=== PATIENT | female | born 2000 | race Caucasian/White ===

== ENCOUNTER 2024-09-09 17:23 | Inpatient (IN) | payer OTHER ==
[2024-09-09 18:30] LABS: BASOPHILS ABSOLUTE AUTO 0.04 K/uL (0.00-0.10); BASOPHILS PERCENT AUTO 0.2 % (0.1-1.3); EOSINOPHILS PERCENT AUTO 0.1 % (0.0-5.4); HEMATOCRIT 37.1 % (34.3-46.0); HEMOGLOBIN 12.5 g/dL (11.2-15.5); IMMATURE GRAN ABSOLUTE AUTO 0.06 K/uL (0.00-0.23); IMMATURE GRAN PERCENT AUTO 0.4 % (0.0-0.7); LYMPHOCYTES ABSOLUTE AUTO 1.31 K/uL (0.8-3.3); LYMPHOCYTES PERCENT AUTO 8.1 % (11.4-47.7); MEAN CORPUSCULAR HEMOGLOBIN 29.1 pg (31.6-35.5); MEAN CORPUSCULAR HGB CONC 33.7 g/dL (31.6-35.5); MEAN CORPUSCULAR VOLUME 86.5 fL (81.4-99.0); NEUTROPHILS ABSOLUTE AUTO 13.89 K/uL (1.0-7.6); NEUTROPHILS PERCENT AUTO 86.2 % (40.0-78.1); PLATELET COUNT,PLT 221 K/uL (130-375); RED BLOOD CELL COUNT 4.29 M/uL (3.77-5.24); WHITE BLOOD CELL COUNT,WBC 16.1 K/uL (3.2-11.0)
[2024-09-09 18:33] LABS: EOSINOPHILS ABSOLUTE AUTO 0.02 K/uL (0.00-0.40)
[2024-09-09 18:51] LABS: A/G RATIO 1.7 (1.2-2.2); ALANINE AMINOTRANSFERASE,ALT 21 U/L (12-78); ALBUMIN 4.3 g/dL (3.4-5.0); ALKALINE PHOSPHATASE 61 U/L (46-116); ANION GAP 11.7 mmol/L (5.0-14.0); ASPARTATE AMNIOTRANSFERASE,AST 16 U/L (15-37); BILIRUBIN TOTAL 0.3 mg/dL (0.2-1.0); BLOOD UREA NITROGEN,BUN 13 mg/dL (7-18); CALCIUM 9.2 mg/dL (8.5-10.1); CARBON DIOXIDE,CO2 26 mmol/L (21-32); CHLORIDE,CL 102 mmol/L (100-108); CREATININE 0.7 mg/dL (0.6-1.0); EST CRCL DRUG DOSING (CG) 119.01 mL/min; ESTIMATED GFR 126 mL/min (>60); GLUCOSE RANDOM 110 mg/dL (74-106); POTASSIUM,K 3.6 mmol/L (3.6-5.2); PROTEIN TOTAL,TP 6.9 g/dL (6.4-8.2); SODIUM,NA 140 mmol/L (140-148)
[2024-09-09] MEDS: Ketorolac 30 MG/ML SDV IVPUSH ONE (19:00)
[2024-09-09] MEDS: Ondansetron 4 MG/2 ML SDV IVPUSH ONE (19:00)
[2024-09-09] MEDS: Sodium Chloride 0.9% 1,000 ML IV SCH (19:01)
[2024-09-09] MEDS: Sodium Chloride 0.9% 10 ML Syringe FLUSH PRN (19:01)
[2024-09-09 19:44] LABS: APPEARANCE,URINE SLIGHTLY CLOUDY (CLEAR); BILIRUBIN,URINE NEGATIVE (NEGATIVE); COLOR,URINE YELLOW (YELLOW); GLUCOSE,URINE NEGATIVE (NEGATIVE); KETONES,URINE 15 mg/dL (NEGATIVE); LEUKOCYTE ESTERASE,URINE NEGATIVE (NEGATIVE); NITRITE,URINE NEGATIVE (NEGATIVE); OCCULT BLOOD,URINE NEGATIVE (NEGATIVE); PH,URINE 6.5 (5.0-8.0); PROTEIN,URINE NEGATIVE (NEGATIVE); UROBILINOGEN,URINE 0.2 EU/dL (0.2-1.0)
[2024-09-09 19:55] LABS: AMORPHOUS SEDIMENT,URINE NOT SEEN; BACTERIA,URINE MANY; EPITHELIAL CELLS,URINE MANY; MUCUS,URINE MODERATE; RBC,URINE 0-5 (0-5); WBC,URINE 0-5 (0-5)
[2024-09-09] MEDS: Iopamidol 612 MG/ML 100 ML Bottle IV SCH (20:32)
[2024-09-09] MEDS: Sodium Chloride 0.9% 80 ML IV SCH (20:32)
[2024-09-09] MEDS: Piperacillin/Tazobactam 4.5 GM in Sodium Chloride 0.9% 100 ML IV ONE (21:50)
[2024-09-10] MEDS ORDERED: Acetaminophen 325 MG Tab PO PRN (00:57)
[2024-09-10] MEDS ORDERED: Naloxone 0.4 MG/ML SDV IVPUSH PRN (00:57)
[2024-09-10] MEDS ORDERED: Acetaminophen 650 MG Supp RECTAL PRN (00:57)
[2024-09-10] MEDS ORDERED: Ondansetron 4 MG/2 ML SDV IV PRN (00:57)
[2024-09-10] MEDS ORDERED: Albuterol 0.083% 2.5 MG/3 ML Neb Soln NEB PRN (00:57)
[2024-09-10] MEDS ORDERED: HYDROmorphone 0.5 MG/0.5 ML Syringe IVPUSH PRN (00:57)
[2024-09-10] MEDS: Sodium Chloride 0.9% 1,000 ML IV SCH (01:42)
[2024-09-10] MEDS: cefTRIAXone 1 GM in Sodium Chloride 0.9% 50 ML IV SCH (01:44)
[2024-09-10] MEDS: metroNIDAZOLE/Normal Saline 500 MG in Premix Bag 1 BAG IV SCH (02:28)
[2024-09-10 06:01] LABS: HEMATOCRIT 32.5 % (34.3-46.0); HEMOGLOBIN 10.9 g/dL (11.2-15.5); MEAN CORPUSCULAR HEMOGLOBIN 29.2 pg (31.6-35.5); MEAN CORPUSCULAR HGB CONC 33.5 g/dL (31.6-35.5); MEAN CORPUSCULAR VOLUME 87.1 fL (81.4-99.0); RED BLOOD CELL COUNT 3.73 M/uL (3.77-5.24); WHITE BLOOD CELL COUNT,WBC 10.2 K/uL (3.2-11.0)
[2024-09-10 06:17] LABS: ANION GAP 8.5 mmol/L (5.0-14.0); CALCIUM 8.6 mg/dL (8.5-10.1); CREATININE 0.6 mg/dL (0.6-1.0); EST CRCL DRUG DOSING (CG) 138.85 mL/min; POTASSIUM,K 3.6 mmol/L (3.6-5.2)
[2024-09-10] MEDS ORDERED: fentaNYL 250 MCG/5 ML SDV ONE (10:24)
[2024-09-10] MEDS ORDERED: Glycopyrrolate 0.2 MG/ML 5 ML MDV ONE (10:24)
[2024-09-10] MEDS ORDERED: Rocuronium 50 MG/5 ML Vial ONE (10:24)
[2024-09-10] MEDS ORDERED: Neostigmine Methylsulfate 10 MG/10 ML MDV ONE (10:24)
[2024-09-10] MEDS ORDERED: Propofol 200 MG/20 ML SDV ONE (10:24)
[2024-09-10] MEDS ORDERED: Ondansetron 4 MG/2 ML SDV ONE (10:24)
[2024-09-10] MEDS ORDERED: Succinylcholine 200 MG/10 ML MDV ONE (10:24)
[2024-09-10] MEDS ORDERED: Dexamethasone 4 MG/ML SDV ONE (10:24)
[2024-09-10] MEDS ORDERED: Bupivacaine 0.25%/EPINEPHrine 1:200,000 30 ML SDV ONE (11:17)
[2024-09-10] MEDS: Bupivacaine 0.25%/EPINEPHrine 1:200,000 30 ML SDV ONE (12:45)
[2024-09-10] MEDS ORDERED: Ketorolac 30 MG/ML SDV ONE (12:58)
== END 2024-09-10 17:02 | disposition home or self-care (01) | DRG 399 ==
LOC: JP.ED 17:23 → JP.MS 23:45
PROVIDERS: ADMIT Hospitalist; ATTEND Internal Medicine
PROC: 0DTJ0ZZ Resection of Appendix, Open Approach (ICD-10-PCS; principal; 2024-09-09)
DX: K35.80 Unspecified acute appendicitis (principal); E86.0 Dehydration; Z98.890 Other specified postprocedural states
CPT/HCPCS: 00840-QZ; 36415; 74177; 80048; 80053; 81001; 81025; 85025; 85027; 88304; 96361; 96365; 96375; 99223; 99285; 99285-25; J0330; J0696; J1100; J1596; J1836; J1885; J2405; J2543; J2704; J2710; J3010; J3490; J7030; Q9967